=== PATIENT | female | born 1965 ===

== ENCOUNTER 2017-01-09 18:43 | Observation (INO) | payer MEDICAID ==
--- NOTE | 2017-01-09 19:08 | ED PDOC ---
Syncope/Near Syncope/Dizzyness Time Seen by Provider: 01/09/17 18:55 Chief Complaint (Nursing): Dizziness/Lightheaded History Per: Patient (Dizziness,generalized fatigue. Has had chronic heavy periods. Seen at [facility] 4 days ago with Hgb 7.6.) Onset/Duration Of Symptoms: Other (Chronic x many years.) Current Symptoms Are (Timing): Still Present Activity At Onset Of Symptoms: Walking Seizure Or Post-ictal Symptoms: None Fall Associated With With Symptoms: No Severity: Moderate Pain Scale Rating Of: 0 Past Medical History Vital Signs: Last Vital Signs Temp Pulse Resp BP 120/90 01/09/17 18:56 Pulse Ox - Medical History PMH: Anemia, HTN - Family History Family History: States: Unknown Family Hx - Immunization History Hx Tetanus Toxoid Vaccination: No Hx Influenza Vaccination: Yes (2015) Hx Pneumococcal Vaccination: No - Home Medications Home Medications: Ambulatory Orders Medication Instructions Recorded Butalbit/Acetamin/Caff/Codeine 1 cap PO Q4 PRN 01/05/17 [Fioricet with Codeine 300 mg-50 mg-40 mg-30 M] Ergocalciferol (Vitamin D2) 50,000 unit PO QWK 01/05/17 [Vitamin D2] Fe Fumarate/Vit C/B12/Stomc [Ziks 1 sgl PO DAILY 01/05/17 Hematogen] Iron Carb,Gl/FA/B12/C/Docusate 1 tab PO DAILY 01/05/17 [Ferralet 90] Lisinopril/Hydrochlorothiazide 1 each PO DAILY 01/05/17 [Lisinopril-Hctz 20-12.5 mg Tab] MedroxyPROGESTERone [Provera] 5 mg PO BID #28 tab 01/05/17 - Allergies Allergies/Adverse Reactions: Allergies Allergy/AdvReac Type Severity Reaction Status Date / Time No Known Allergies Allergy Verified 01/09/17 19:57 Review of Systems ROS Statement: Except As Marked, All Systems Reviewed And Found Negative Constitutional: Positive for: Weakness Genitourinary Female: Positive for: Vaginal Bleeding Physical Exam - Reviewed Nursing Documentation Reviewed: Yes Vital Signs Reviewed: Yes - Physical Exam Appears: Positive for: Non-toxic, No Acute Distress Head Exam: Positive for: ATRAUMATIC, NORMAL INSPECTION, NORMOCEPHALIC Skin: Positive for: Normal Color, Warm, DRY Eye Exam: Positive for: EOMI, Normal appearance, PERRL ENT: Positive for: Normal ENT Inspection Neck: Positive for: Normal, Painless ROM Cardiovascular/Chest: Positive for: Regular Rate, Rhythm Respiratory: Positive for: CNT, Normal Breath Sounds Gastrointestinal/Abdominal: Positive for: Normal Exam, Bowel Sounds, Soft Pelvic Exam: Positive for: External Exam Normal, Other (Uterus enlarged and irregular.). Negative for: Active Bleeding, Blood, Tender Adnexa, Tender Uterus Back: Positive for: Normal Inspection Extremity: Positive for: Normal ROM Neurologic/Psych: Positive for: Alert, Oriented - Laboratory Results Result Diagrams: 01/09/17 19:30 01/09/17 19:30 Disposition - Clinical Impression Clinical Impression: Menorrhagia, Anemia - Patient ED Disposition Is Patient to be Admitted: Yes - Disposition Disposition Time: 21:03 Condition: FAIR - Pt Status Changed To: Hospital Disposition Of: Observation - POA Present On Arrival: None
[2017-01-09] MEDS ORDERED: Sodium Chloride 0.9% 1,000 ML IV STA (19:10)
[2017-01-09 20:11] LABS: BASO % 0.7 % (0.0-2.0); EOS % 0.4 % (0.0-4.0); HEMATOCRIT 25.5 % (34.0-47.0); LYMPH # 1.1 K/uL (1.0-4.3); LYMPH % 16.7 % (20.0-40.0); MEAN CELL VOLUME 76.3 fl (81.0-99.0); MEAN CORPUSCULAR HEMOGLOBIN 23.4 pg (27.0-31.0); MEAN CORPUSCULAR HGB CONC 30.7 g/dL (33.0-37.0); MEAN PLATELET VOLUME 9.3 fl (7.2-11.7); MONO # 0.4 K/uL (0.0-0.8); MONO % 5.6 % (0.0-10.0); NEUT % 76.6 % (50.0-75.0); NRBC % 0.1 % (0.0-0.0); WHITE BLOOD COUNT 6.5 K/uL (4.8-10.8)
[2017-01-09 20:13] LABS: ALB/GLOB RATIO 1.2 (1.0-2.1); ALKALINE PHOSPHATASE 52 U/L (38-126); ALT/SGPT 30 U/L (9-52); AST/SGOT 28 U/L (14-36); BILIRUBIN,TOTAL 0.3 mg/dl (0.2-1.3); BLOOD UREA NITROGEN 9 mg/dl (7-17); CALCIUM 9.3 mg/dL (8.4-10.2); CARBON DIOXIDE 24 mmol/L (22-30); CHLORIDE 104 mmol/L (98-107); GFR AFRICAN-AMERICAN > 60; GLUCOSE,RANDOM 114 mg/dL (65-105); POTASSIUM 4.5 MMOL/L (3.6-5.0); SODIUM 138 mmol/l (132-148); TOTAL PROTEIN 7.6 G/DL (6.3-8.2)
[2017-01-09] MEDS ORDERED: Ergocalciferol 50,000 Intl Units Cap PO SCH (22:30)
[2017-01-09] MEDS ORDERED: Apap-Butalbital-Caffeine 325-50-40mg Tab PO PRN (22:31)
[2017-01-10 00:58] VITALS: BMI 33.1
[2017-01-10 04:53] VITALS: O2SAT 98
[2017-01-10] MEDS ORDERED: [UNRECOGNIZED DRUG - OTHER] PO SCH (09:00)
[2017-01-10] MEDS ORDERED: Multivitamin With Minerals Tab PO SCH (09:00)
[2017-01-10] MEDS ORDERED: LISINOPRIL PO SCH (09:00)
[2017-01-10] MEDS ORDERED: HYDROCHLOROTHIAZIDE PO SCH (09:00)
[2017-01-10] MEDS ORDERED: DOCUSATE PO SCH (09:00)
[2017-01-10] MEDS ORDERED: [UNRECOGNIZED DRUG - OTHER] PO SCH (09:00)
[2017-01-10] MEDS ORDERED: IRON CARB GL PO SCH (09:00)
[2017-01-10] MEDS ORDERED: B12 PO SCH (09:00)
[2017-01-10 09:15] VITALS: BP 112/75; PULSE 84; RESP 20; TEMP 98.4
--- NOTE | 2017-01-10 09:40 | US ---
HISTORY: menorrgagia COMPARISON: None available. TECHNIQUE: Transvaginal imaging of the pelvis was performed. A few transabdominal images were performed to obtain the entire size of the uterus. FINDINGS: UTERUS: Measures 17.3 x 10.3 x 13.6 cm. Uterus is moderately enlarged and heterogeneous in echogenicity. There appears to be a very large central heterogeneous uterine mass more than likely representing enlarged fibroid. This occupies a large portion of the uterus. Visualized cervix was probably within normal limits. ENDOMETRIUM: Measures 0 mm in diameter. Endometrial complex was not adequately identified due to the large central uterine fibroid. This is either displaced and/or occupied by the large central uterine fibroid. CERVIX: Within normal limits RIGHT OVARY: Measures 0 cm. Right ovary not identified. LEFT OVARY: Measures 0 cm. Left ovary not identified FREE FLUID: No significant free fluid noted. OTHER FINDINGS: None. IMPRESSION: Extremely enlarged uterus with probable large central uterine fibroid occupying a large portion of the uterus. The endometrial complex not adequately seen. Ovaries not seen. Nonemergent pelvic MRI would be suggested.
[2017-01-10 10:20] LABS: HEMATOCRIT 32.6 % (34.0-47.0); MEAN CORPUSCULAR HEMOGLOBIN 25.2 pg (27.0-31.0); MEAN CORPUSCULAR HGB CONC 31.9 g/dL (33.0-37.0); RED CELL DISTRIBUTION WIDTH 18.9 % (11.5-14.5); WHITE BLOOD COUNT 5.4 K/uL (4.8-10.8)
--- NOTE | 2017-01-10 10:31 | CP.PCM.HP ---
History of Present Illness - History of Present Illness History of Present Illness: pt admitted for heavy vaginal bleeding and anemia-acute. states she ahs not h/o same. was in [facility] 4 daysa go but signed ama as she did not want blood at that time. at present offers no copmalitns s/p 2 untis prb. hgb now 10.5 up from 7.8 TV us demonstrates large uterine fibroid. seen by dr adair schaeffer who cleared pt for dc. no abd pain. no bleeding at present. 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 Present on Admission - Present on Admission Any Indicators Present on Admission: No Review of Systems - Reproductive: Female Reproductive:Female: As Per HPI, Heavy Menses Past Patient History - Past Medical History & Family History Past Medical History?: Yes - Past Social History Smoking Status: Never Smoked - CARDIAC Hx Cardiac Disorders: Yes Hx Hypertension: Yes - PULMONARY Hx Respiratory Disorders: No - NEUROLOGICAL Hx Neurological Disorder: No - HEENT Hx HEENT Problems: No - RENAL Hx Chronic Kidney Disease: No - ENDOCRINE/METABOLIC Hx Endocrine Disorders: No - HEMATOLOGICAL/ONCOLOGICAL Hx Blood Disorders: Yes Hx Anemia: Yes Other/Comment: chronic heavy periods - INTEGUMENTARY Hx Dermatological Problems: No - MUSCULOSKELETAL/RHEUMATOLOGICAL Hx Musculoskeletal Disorders: No Hx Falls: No - GASTROINTESTINAL Hx Gastrointestinal Disorders: No - GENITOURINARY/GYNECOLOGICAL Hx Genitourinary Disorders: No Other/Comment: heavy menses - PSYCHIATRIC Hx Psychophysiologic Disorder: No Hx Substance Use: No - SURGICAL HISTORY Hx Surgeries: Yes Hx Musculoskeletal Surgery: Yes (Left arm surgery) Hx Tubal Ligation: Yes - ANESTHESIA Hx Anesthesia: Yes Hx Anesthesia Reactions: No Meds Home Medications: Home Medication List Medication Instructions Recorded Confirmed Type Ferrous Sulfate [Feosol] 325 mg PO BID #60 tab 01/10/17 Rx Allergies/Adverse Reactions: Allergies Allergy/AdvReac Type Severity Reaction Status Date / Time No Known Allergies Allergy Verified 01/09/17 19:57 Physical Exam - Constitutional Appears: Well, Non-toxic, No Acute Distress - Head Exam Head Exam: ATRAUMATIC, NORMAL INSPECTION, NORMOCEPHALIC - Eye Exam Eye Exam: EOMI, Normal appearance, PERRL Pupil Exam: NORMAL ACCOMODATION, PERRL - ENT Exam ENT Exam: Mucous Membranes Moist, Normal Exam - Neck Exam Neck exam: Positive for: Normal Inspection - Respiratory Exam Respiratory Exam: Clear to Auscultation Bilateral, NORMAL BREATHING PATTERN - Cardiovascular Exam Cardiovascular Exam: REGULAR RHYTHM, RRR, +S1, +S2 - GI/Abdominal Exam GI & Abdominal Exam: Normal Bowel Sounds, Soft. absent: Tenderness - Extremities Exam Extremities exam: Positive for: full ROM, normal capillary refill, normal inspection, pedal pulses present - Back Exam Back exam: NORMAL INSPECTION - Neurological Exam Neurological exam: Alert, CN II-XII Intact, Normal Gait, Oriented x3, Reflexes Normal - Psychiatric Exam Psychiatric exam: Normal Affect, Normal Mood - Skin Skin Exam: Dry, Intact, Normal Color, Warm Results - Vital Signs Recent Vital Signs: Last Vital Signs Temp 98.4 F 01/10/17 09:14 Pulse 84 01/10/17 09:34 Resp 20 01/10/17 09:14 BP 112/75 01/10/17 09:34 Pulse Ox 98 01/10/17 09:14 - Labs Result Diagrams: 01/10/17 08:30 01/10/17 08:30 Labs: Laboratory Results - last 24 hr 01/09/17 01/09/17 21:10 22:36 Blood Type A POSITIVE Blood Type Confirm A POSITIVE Antibody Screen Negative Crossmatch See Detail BBK History Checked No verified bt Assessment & Plan (1) Anemia Assessment and Plan: r/t menorrhagia resolved w/ 2 units prbc, cont home meds, feosol bid Status: Acute (2) Menorrhagia Assessment and Plan: r/t uterine fibroid, 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 Bed Request Type: Telemetry Admitting Physician: Ese Mary
--- NOTE | 2017-01-10 10:59 | CP.PCM.DIS ---
Provider - Provider Date of Admission: 01/09/17 20:41 Attending physician: Ese Mary MD Time Spent in preparation of Discharge (in minutes): 15 Hospital Course - Lab Results Lab Results: Most Recent Lab Values WBC 5.4 K/uL (4.8-10.8) 01/10/17 08:30 RBC 4.12 Mil/uL (3.80-5.20) 01/10/17 08:30 Hgb 10.4 g/dL (12.0-16.0) L D 01/10/17 08:30 Hct 32.6 % (34.0-47.0) L 01/10/17 08:30 MCV 79.0 fl (81.0-99.0) L D 01/10/17 08:30 MCH 25.2 pg (27.0-31.0) L 01/10/17 08:30 MCHC 31.9 g/dL (33.0-37.0) L 01/10/17 08:30 RDW 18.9 % (11.5-14.5) H 01/10/17 08:30 Plt Count 180 K/uL (130-400) 01/10/17 08:30 MPV 9.3 fl (7.2-11.7) 01/09/17 19:30 Neut % (Auto) 76.6 % (50.0-75.0) H 01/09/17 19:30 Lymph % (Auto) 16.7 % (20.0-40.0) L 01/09/17 19:30 [place] % (Auto) 5.6 % (0.0-10.0) 01/09/17 19:30 Eos % (Auto) 0.4 % (0.0-4.0) 01/09/17 19:30 Baso % (Auto) 0.7 % (0.0-2.0) 01/09/17 19:30 Neut # 5.0 K/uL (1.8-7.0) 01/09/17 19:30 Lymph # 1.1 K/uL (1.0-4.3) 01/09/17 19:30 [place] # 0.4 K/uL (0.0-0.8) 01/09/17 19:30 Eos # 0.0 K/uL (0.0-0.7) 01/09/17 19:30 Baso # 0.0 K/uL (0.0-0.2) 01/09/17 19:30 Sodium 138 mmol/l (132-148) 01/09/17 19:30 Potassium 4.5 MMOL/L (3.6-5.0) 01/09/17 19:30 Chloride 104 mmol/L (98-107) 01/09/17 19:30 Carbon Dioxide 24 mmol/L (22-30) 01/09/17 19:30 Anion Gap 14 (10-20) 01/09/17 19:30 BUN 9 mg/dl (7-17) 01/09/17 19:30 Creatinine 0.6 mg/dL (0.7-1.2) L 01/09/17 19:30 Est GFR ( Amer) > 60 01/09/17 19:30 Est GFR (Non-Af Amer) > 60 01/09/17 19:30 Random Glucose 114 mg/dL (65-105) H 01/09/17 19:30 Calcium 9.3 mg/dL (8.4-10.2) 01/09/17 19:30 Total Bilirubin 0.3 mg/dl (0.2-1.3) 01/09/17 19:30 AST 28 U/L (14-36) 01/09/17 19:30 ALT 30 U/L (9-52) 01/09/17 19:30 Alkaline Phosphatase 52 U/L (38-126) 01/09/17 19:30 Total Protein 7.6 G/DL (6.3-8.2) 01/09/17 19:30 Albumin 4.1 g/dL (3.5-5.0) 01/09/17 19:30 Globulin 3.5 gm/dL (2.2-3.9) 01/09/17 19:30 Albumin/Globulin Ratio 1.2 (1.0-2.1) 01/09/17 19:30 Beta HCG, Quant < 2.39 mIU/mL 01/09/17 20:10 Blood Type A POSITIVE 01/09/17 21:10 Blood Type Confirm A POSITIVE 01/09/17 22:36 Antibody Screen Negative 01/09/17 21:10 Crossmatch See Detail 01/09/17 21:10 BBK History Checked No verified bt 01/09/17 21:10 Discharge Exam - Head Exam Head Exam: ATRAUMATIC, NORMAL INSPECTION, NORMOCEPHALIC Discharge Plan - Discharge Medications Prescriptions: Ferrous Sulfate [Feosol] 325 mg PO BID #60 tab - Follow Up Plan Condition: FAIR Disposition: HOME/ ROUTINE Additional Instructions: cleared by card decorator, us noted, bw noted rted prn, med sper med rec meds escribed final dx-menorrhagia, uterine fibroid 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
[2017-01-10 11:10] LABS: ALB/GLOB RATIO 1.2 (1.0-2.1); ALKALINE PHOSPHATASE 59 U/L (38-126); ALT/SGPT 23 U/L (9-52); AST/SGOT 15 U/L (14-36); BILIRUBIN,TOTAL 0.6 mg/dl (0.2-1.3); BLOOD UREA NITROGEN 7 mg/dl (7-17); CALCIUM 9.4 mg/dL (8.4-10.2); CARBON DIOXIDE 22 mmol/L (22-30); CHLORIDE 108 mmol/L (98-107); GFR AFRICAN-AMERICAN > 60; GLUCOSE,RANDOM 90 mg/dL (65-105); POTASSIUM 4.3 MMOL/L (3.6-5.0); SODIUM 141 mmol/l (132-148); TOTAL PROTEIN 7.6 G/DL (6.3-8.2)
== END 2017-01-10 13:00 | disposition home or self-care (01) ==
LOC: H.ER 18:43 → H.ERHOLD 20:41 → H.TEL 22:00
PROVIDERS: ADMIT Family Medicine; ATTEND Family Medicine
DX: D25.9 Leiomyoma of uterus, unspecified (principal); D64.9 Anemia, unspecified; I10 Essential (primary) hypertension; N92.0 Excessive and frequent menstruation with regular cycle; Z98.51 Tubal ligation status